=== PATIENT | female | born 1990 | race Caucasian/White ===

== ENCOUNTER 2024-09-28 18:24 | Emergency (ER) | payer MEDICAID ==
[~2024-09-28] VITALS: Ht 157.5 cm; Wt 67.8 kg
[2024-09-28 18:30] VITALS: BP 111/74; PULSE 80; RESP 18; TEMP 98.4; O2SAT 100
[2024-09-28 19:33] LABS: BASOPHILS % (AUTO) 0.2 % (0-1); EOSINOPHILS # (AUTO) 0.2 X10'3 (0-0.9); EOSINOPHILS % (AUTO) 2.2 % (0-6); HEMATOCRIT 38.8 % (35.0-45.0); HEMOGLOBIN 12.8 g/dl (12.0-16.0); LYMPHOCYTES # (AUTO) 2.2 X10'3 (1.1-4.8); MEAN CORPUSCULAR HEMOGLOBIN 29.3 PG (27.0-31.0); MEAN CORPUSCULAR HGB CONC 32.9 g/dL (33.0-36.5); MEAN CORPUSCULAR VOLUME 88.9 FL (78-98); MEAN PLATELET VOLUME 8.8 FL (7.4-10.4); MONOCYTES # (AUTO) 0.5 X10'3 (0-0.9); MONOCYTES % (AUTO) 5.4 % (2-12); NEUTROPHILS # (AUTO) 6.7 X10'3 (1.8-7.7); NEUTROPHILS % (AUTO) 69.2 % (42-75); PLATELET COUNT 263 X10'3 (140-440); RED BLOOD COUNT 4.36 X10'6 (4.20-5.60); RED CELL DISTRIBUTION WIDTH 13.3 % (11.5-14.5); WHITE BLOOD COUNT 9.7 X10'3 (4.5-11.0)
[2024-09-28 19:35] LABS: URINE HCG NEGATIVE (NEG)
[2024-09-28 19:50] LABS: BILIRUBIN,URINE NEGATIVE (Neg); CLARITY,URINE SLIGHTLY CLOUDY (Clear); COLOR,URINE YELLOW (Yellow); GLUCOSE, URINE NEGATIVE (Neg); KETONES,URINE NEGATIVE (Neg); LEUKOCYTE ESTERASE ,URINE SMALL (Neg); NITRITES, URINE NEGATIVE (Neg); OCCULT BLOOD,URINE MODERATE (Neg); PH,URINE 7.5 (4.8-8.0); PROTEIN,URINE 30 mg/dl (Neg); UROBILINOGEN,URINE 0.2 E.U/dL (0.2-1.0)
[2024-09-28 19:52] LABS: ALANINE AMINOTRANSFERASE 26 U/L (12-78); ALBUMIN 3.4 G/DL (3.4-5.0); ALKALINE PHOSPHATASE 108 IU/L (46-116); ANION GAP 6 (8-16); ASPARTATE AMINO TRANSFERASE 12 U/L (10-37); BILIRUBIN,TOTAL 0.3 MG/DL (0.1-1.0); BLOOD UREA NITROGEN 16 MG/DL (7-18); CHLORIDE 107 MMOL/L (99-107); GLUCOSE 122 MG/DL (70-104); LIPASE 35 U/L (16-77); POTASSIUM 4.1 MMOL/L (3.5-5.1); SODIUM 142 MMOL/L (135-145); TOTAL CARBON DIOXIDE 29.1 MMOL/L (24-32); TOTAL PROTEIN 6.8 G/DL (6.4-8.2); eCRCL 80 ML/MIN; eGFR 83 ML/MIN
[2024-09-28 20:00] LABS: UA COLLECTION TYPE CLN CATCH MIDSTREAM
[2024-09-28 20:29] LABS: RBC,URINE NONE SEEN /HPF (0-2)
[2024-09-28 20:30] LABS: BACTERIA,URINE NONE SEEN /HPF (Neg)
[2024-09-28 20:38] LABS: SQUAMOUS EPITHELIAL CELL,UR NONE SEEN /LPF (FEW)
[2024-09-29] MEDS ORDERED: TRAM50TA2 PO (09:38)
== END 2024-09-28 20:36 | disposition left against medical advice (07) ==
LOC: ER 18:25
DX: R10.84 Generalized abdominal pain (principal); Z53.21 Procedure and treatment not carried out due to patient leaving prior to being seen by health care provider
CPT/HCPCS: 36415; 80053; 81001; 81025; 83690; 85025; 87077; 87088; 87186

== ENCOUNTER 2024-09-29 07:49 | Emergency (ER) | payer MEDICAID ==
[~2024-09-29] VITALS: Ht 157.5 cm; Wt 66.6 kg
[2024-09-29 08:02] VITALS: TEMP 97.8
[2024-09-29 08:52] LABS: BASOPHILS % (AUTO) 0.1 % (0-1); EOSINOPHILS # (AUTO) 0.1 X10'3 (0-0.9); EOSINOPHILS % (AUTO) 0.9 % (0-6); HEMATOCRIT 38.1 % (35.0-45.0); HEMOGLOBIN 12.9 g/dl (12.0-16.0); LYMPHOCYTES % (AUTO) 16.5 % (21-51); MEAN CORPUSCULAR HEMOGLOBIN 29.8 PG (27.0-31.0); MEAN CORPUSCULAR HGB CONC 33.9 g/dL (33.0-36.5); MEAN CORPUSCULAR VOLUME 87.9 FL (78-98); MONOCYTES # (AUTO) 0.7 X10'3 (0-0.9); MONOCYTES % (AUTO) 5.7 % (2-12); NEUTROPHILS # (AUTO) 9.4 X10'3 (1.8-7.7); NEUTROPHILS % (AUTO) 76.8 % (42-75); PLATELET COUNT 254 X10'3 (140-440); RED BLOOD COUNT 4.34 X10'6 (4.20-5.60); RED CELL DISTRIBUTION WIDTH 13.2 % (11.5-14.5); WHITE BLOOD COUNT 12.3 X10'3 (4.5-11.0)
[2024-09-29 09:07] LABS: ALANINE AMINOTRANSFERASE 29 U/L (12-78); ALBUMIN 3.5 G/DL (3.4-5.0); ALBUMIN/GLOBULIN RATIO 0.9 (1.1-1.5); ALKALINE PHOSPHATASE 88 IU/L (46-116); ANION GAP 8 (8-16); ASPARTATE AMINO TRANSFERASE 9 U/L (10-37); BILIRUBIN,TOTAL 0.4 MG/DL (0.1-1.0); BLOOD UREA NITROGEN 10 MG/DL (7-18); BUN/CREATININE RATIO 14.3 (10.0-20.0); CALCIUM 8.6 MG/DL (8.5-10.1); CHLORIDE 104 MMOL/L (99-107); GLUCOSE 102 MG/DL (70-104); LIPASE 24 U/L (16-77); POTASSIUM 3.9 MMOL/L (3.5-5.1); SODIUM 136 MMOL/L (135-145); TOTAL PROTEIN 7.2 G/DL (6.4-8.2); eCRCL 91 ML/MIN; eGFR > 90 ML/MIN
[2024-09-29 09:24] VITALS: BP 121/89; PULSE 73; RESP 16; O2SAT 98
[2024-09-29] MEDS: normal saline 1000ml 1,000 ML IV ONE (09:25)
[2024-09-29] MEDS ORDERED: TRAM50TA2 PO (09:38)
== END 2024-09-29 09:46 | disposition home or self-care (01) ==
LOC: ER 07:49
DX: R10.84 Generalized abdominal pain (principal)
CPT/HCPCS: 36415; 80053; 83690; 85025; 99283; J7030

== ENCOUNTER → 2024-09-29 | Emergency (ER) | payer MEDICAID ==
[~2024-09-29] VITALS: Ht 157.5 cm; Wt 61.4 kg
[~2024-09-29] MED LIST: TRAM50TA2 PO
[2024-09-29 19:20] VITALS: BP 117/81; PULSE 92; RESP 18; TEMP 98.3; O2SAT 96
== END | disposition left against medical advice (07) ==
LOC: ER 19:15
DX: R10.84 Generalized abdominal pain (principal); Z53.21 Procedure and treatment not carried out due to patient leaving prior to being seen by health care provider

== ENCOUNTER 2024-12-15 04:10 | Emergency (ER) | payer MEDICAID ==
[~2024-12-15] VITALS: Ht 157.5 cm; Wt 72.7 kg
[2024-12-15 04:18] VITALS: BP 128/70; PULSE 91; TEMP 98.7; O2SAT 98
[2024-12-15 04:30] VITALS: RESP 16
--- NOTE | 2024-12-15 05:09 | Physician Documentation ---
History of Present Illness Chief Complaint: Abdominal Pain Stated Complaint: DIARRHEA Time Seen by MD: 04:47 Primary Medical Doctor: None Mode of Arrival: Ambulatory HPI 34-year-old female, presenting with abdominal pain and diarrhea She tells me that her symptoms started today. She reports having generalized abdominal pain and cramping. She reports having 3 episodes of watery diarrhea. She also reports nausea. No fevers or chills. No vomiting. No dysuria. No blood in the stool. She does not take any medications. She reports a history of similar episodes. In the past she has come to the ER, and says that she has been treated with ibuprofen with relief Medication Reconciliation Allergies: Coded Allergies: No Known Allergies (Unverified , 12/15/24) Scheduled PRN ONDANSETRON ODT 4mg tablet (Ondansetron Odt), 1 TAB PO Q6H PRN PRN for nausea/vomiting Review of Systems Constitutional: Denies: fever Gastrointestinal: Reports: abdominal pain, nausea, diarrhea Physical Exam Vital Signs: Temperature: 98.7, Source: Oral, Heart Rate: 91, Respiratory Rate: 16, BP: 128/70, Pulse Oximetry: 98, Weight: 72.730 Physical Exam General: This is a young female, sitting quietly in bed, not in distress HEENT: Atraumatic, oropharynx appears dry Heart: Mild tachycardic, appears regular Lungs: normal work of breathing, normal oxygen saturation on room air Abdomen: Soft, nondistended, nontender all quadrants, no rebound or guarding Neuro: Alert and oriented, no focal deficits Psychiatric: Appears mildly anxious, but otherwise is cooperative with exam Progress Results/Orders Results/Orders Orders - YOLANDE NICOLE MD Urinalysis, Cult If Indicated (12/15/24 04:20) Hcg, Ur Ql (12/15/24 04:20) Cbc/Diff (12/15/24 04:20) BMP (12/15/24 04:20) Lipase (12/15/24 04:20) CMP (12/15/24 04:20) Ondansetron Disint. Tablet (Zofran Odt T (12/15/24 05:10) Ibuprofen Tablet (Motrin Tablet) (12/15/24 05:10) Vital Signs 12/15/24 12/15/24 04:18 04:30 Temp 98.7 Pulse 91 Resp 18 16 B/P (MAP) 128/70 Pulse Ox 98 Medical Decision Making Additional Comments Differential includes viral syndrome, food poisoning, colitis, dehydration, electrolyte derangement Assessment 34-year-old female presenting with abdominal pain and diarrhea. She has a benign abdominal exam, no significant tenderness. She does appear mildly dehydrated. I did offer to do an IV, labs, and treatment including IV fluids. However she declined, stated she did not want to be poked with a needle. Her only request was for nausea medicine and ibuprofen. These were given. She will be discharged home with Zofran and symptomatic treatments. She can return here she changes her mind and does want further workup or treatment. Departure Time of Disposition: 05:07 Disposition: 01 HOME / SELF CARE / HOMELESS Impression: Primary Impression: Abdominal pain Additional Impression: Diarrhea Condition: Improved Discharge Instructions: Abdominal Pain (Nonspecific) Referrals: NO PRIMARY CARE PROVIDER (PCP) Prescriptions ONDANSETRON ODT 4mg tablet (ONDANSETRON ODT) 4 Mg Tab.rapdis 1 TAB PO Q6H PRN PRN for nausea/vomiting for 4 Days, #16 TAB 1 Refill Prov: YOLANDE NICOLE MD 12/15/24 Education Educated: Patient Educated regarding: diagnosis, treatment, need for follow up Signature Scribe Signature: [email or web address] Attestation: YOLANDE Bennett MD Dec 15, 2024 05:09
[2024-12-15] MEDS ORDERED: ONDA-243 PO (05:11)
[2024-12-15] MEDS: ondansetron 4mg rapidly disintigrating tab PO ONE (05:13)
[2024-12-15] MEDS: ibuprofen tablet 400 MG TABLET PO ONE (05:13)
[2024-12-15] MEDS ORDERED: ibuprofen 200mg tablet PO ONE (05:15)
== END 2024-12-15 05:24 | disposition home or self-care (01) ==
LOC: ER 04:10
DX: R10.84 Generalized abdominal pain (principal); R19.7 Diarrhea, unspecified
CPT/HCPCS: 99283

== ENCOUNTER 2025-06-25 10:12 | Emergency (ER) | payer MEDICAID ==
[~2025-06-25] VITALS: Ht 167.6 cm; Wt 65.0 kg
[~2025-06-25 10:12] MED LIST changes: +ONDA-243 PO; -TRAM50TA2 PO
[2025-06-25 10:25] VITALS: BP 148/84; PULSE 60; RESP 18; O2SAT 98
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
== END 2025-06-25 11:38 | disposition left against medical advice (07) ==
LOC: ER 10:12
DX: M25.512 Pain in left shoulder (principal); M54.2 Cervicalgia
CPT/HCPCS: 99283